=== PATIENT | female | born 1965 | race Two or more races ===

== ENCOUNTER 2022-08-14 10:12 | Emergency (ER) | payer BC, OTHER ==
[2022-08-14 10:30] VITALS: TEMP 98.4; BMI 27.1
[2022-08-14 12:00] LABS: INR 1.11 (0.83-1.09); PROTHROMBIN TIME (PATIENT) 12.8 SEC (9.7-13.0)
[2022-08-14 12:02] LABS: ACTIVATED PTT 34.4 SECONDS (25.2-36.5)
[2022-08-14] MEDS ORDERED: SODIUM CHLORIDE 0.9% 1000 ML INFUS.BAG IV ONE (12:07)
[2022-08-14 12:13] LABS: CALCIUM 10.1 mg/dL (8.5-10.1)
[2022-08-14 12:14] LABS: ALBUMIN 3.8 g/dl (3.4-5.0); BLOOD UREA NITROGEN 13.5 mg/dL (7-18)
[2022-08-14 12:16] LABS: BASO % 0.5 % (0-2.0); HEMATOCRIT 36.8 % (32.4-45.2); HEMOGLOBIN 12.2 GM/dL (10.7-15.3); LYMPH % 22.6 % (8-40); MCH 28.6 pg (25.7-33.7); MCHC 33.2 g/dl (32.0-36.0); MEAN PLT VOLUME 7.4 fl (7.5-11.1); MONO % 5.2 % (3.8-10.2); NEUT % 69.7 % (42.8-82.8); PLATELET COUNT 392 10^3/uL (134-434); RBC 4.28 M/mm3 (3.60-5.2); RDW 13.9 % (11.6-15.6); WHITE BLOOD COUNT 7.6 K/mm3 (4.0-10.0)
[2022-08-14 12:17] LABS: CREATININE 0.8 mg/dL (0.55-1.3)
[2022-08-14 12:18] LABS: TOT PROT 7.8 g/dl (6.4-8.2)
[2022-08-14 12:19] LABS: BILIRUBIN,TOTAL 0.4 mg/dL (0.2-1)
[2022-08-14 13:26] VITALS: BP 151/73; PULSE 82; RESP 19
[2022-08-14] MEDS ORDERED: metroNIDAZOLE 500 MG TABLET PO ONE (16:24)
[2022-08-14] MEDS ORDERED: CIPROFLOXACIN 500 MG TABLET (RESTRICTED TO ID) PO ONE (16:24)
[2022-08-14] MEDS ORDERED: metroNIDAZOLE 250 MG TABLET ONE (16:53)
== END 2022-08-14 17:16 | disposition home or self-care (01) ==
LOC: JER 10:12
DX: K62.5 Hemorrhage of anus and rectum (principal)
CPT/HCPCS: 0241U-QW; 36415; 74177-TC; 80053; 83690; 85025; 85610; 85730; 86850; 86900; 86901; 99285-25; Q9967

== ENCOUNTER 2022-10-16 04:27 | Day surgery (SDC) | payer BC, OTHER ==
[2022-10-15 09:37] VITALS: BMI 28.1
[2022-10-16 08:34] VITALS: TEMP 97.1
[2022-10-16 08:54] VITALS: RESP 16
[2022-10-16 12:08] VITALS: BP 147/76; PULSE 70
== END 2022-10-16 09:00 | disposition home or self-care (01) ==
LOC: JASU-ENDO 04:27
PROVIDERS: ATTEND Internal Medicine Gastroenterology
PROC: 0DJD8ZZ Inspection of Lower Intestinal Tract, Via Natural or Artificial Opening Endoscopic (ICD-10-PCS; principal; 2022-10-16 08:00)
DX: K62.5 Hemorrhage of anus and rectum (principal)
CPT/HCPCS: 82962

== ENCOUNTER 2023-09-21 09:55 | Emergency (ER) | payer BC, OTHER ==
[2023-09-21] MEDS ORDERED: PIPERACILLIN/TAZOB 2.25 GM 2.25 GM/50 ML BAG IVPB ONE (10:02)
[2023-09-21 11:02] VITALS: BP 154/67; PULSE 83; RESP 20; TEMP 98.2; BMI 31.9
== END 2023-09-21 12:12 | disposition home or self-care (01) ==
LOC: JER 09:55 → JERFT 09:55
DX: R05.9 Cough, unspecified (principal); Z20.822 Contact with and (suspected) exposure to COVID-19
CPT/HCPCS: 0241U-QW; 99283-25

== ENCOUNTER 2023-11-07 13:40 | Emergency (ER) | payer BC, OTHER ==
[2023-11-07 13:58] VITALS: BMI 49.8
[2023-11-07 14:44] LABS: EOS % 4.1 % (0-4.5); HEMATOCRIT 37.6 % (32.4-45.2); LYMPH % 23.7 % (8-40); MCH 27.2 pg (25.7-33.7); MCHC 31.9 g/dl (32.0-36.0); MEAN CELL VOLUME 85.4 fl (80-96); MEAN PLT VOLUME 7.4 fl (7.5-11.1); MONO % 5.5 % (3.8-10.2); NEUT % 65.7 % (42.8-82.8); PLATELET COUNT 431 10^3/uL (134-434); RDW 14.4 % (11.6-15.6); WHITE BLOOD COUNT 6.9 K/mm3 (4.0-10.0)
[2023-11-07 14:52] LABS: INR 0.96 (0.83-1.09); PROTHROMBIN TIME (PATIENT) 11.1 SEC (9.7-13.0)
[2023-11-07 14:54] LABS: ACTIVATED PTT 33.3 SECONDS (25.2-36.5)
[2023-11-07 15:06] LABS: POTASSIUM 4.7 mmol/L (3.5-5.1)
[2023-11-07 15:08] LABS: ALBUMIN 3.1 g/dl (3.4-5.0); BLOOD UREA NITROGEN 14.8 mg/dL (7-18); CALCIUM 9.9 mg/dL (8.5-10.1)
[2023-11-07 15:11] LABS: CREATININE 0.7 mg/dL (0.55-1.3)
[2023-11-07 15:13] LABS: BILIRUBIN,TOTAL 0.2 mg/dL (0.2-1); TOT PROT 7.5 g/dl (6.4-8.2)
[2023-11-07 15:57] VITALS: BP 133/64; PULSE 72; RESP 20; TEMP 98.2
== END 2023-11-07 20:17 | disposition home or self-care (01) ==
LOC: JER 13:40
DX: R07.89 Other chest pain (principal)
CPT/HCPCS: 36415; 71046-TC-FY; 80053; 84484; 85025; 85610; 85730; 93005; 93010; 99285-25

== ENCOUNTER 2023-12-14 21:32 | Observation (INO) | payer BC, OTHER ==
[2023-12-14] MEDS: SODIUM CHLORIDE 1,000 ML IV SCH (22:36)
[2023-12-14 22:38] LABS: BASO % 0.5 % (0-2.0); EOS % 1.6 % (0-4.5); HEMATOCRIT 36.6 % (32.4-45.2); LYMPH % 15.3 % (8-40); MCH 27.7 pg (25.7-33.7); MCHC 32.7 g/dl (32.0-36.0); MEAN CELL VOLUME 84.5 fl (80-96); MEAN PLT VOLUME 7.8 fl (7.5-11.1); MONO % 4.3 % (3.8-10.2); NEUT % 78.3 % (42.8-82.8); PLATELET COUNT 381 10^3/uL (134-434); RBC 4.33 M/mm3 (3.60-5.2); RDW 14.5 % (11.6-15.6); WHITE BLOOD COUNT 9.4 K/mm3 (4.0-10.0)
[2023-12-14 22:39] LABS: EPI CELLS >36 /uL (0-25.1); HYALINE CASTS 1 /uL (0-3.1); URINE APPEARANCE CLEAR; URINE BACTERIA 308 /uL (0-1359); URINE BILIRUBIN NEGATIVE (NEGATIVE); URINE COLOR YELLOW; URINE GLUCOSE (UA) 3+ (NEGATIVE); URINE KETONE TRACE (NEGATIVE); URINE LEUK ESTERASE NEGATIVE (NEGATIVE); URINE NITRITE NEGATIVE (NEGATIVE); URINE PROTEIN 2+ (NEGATIVE); URINE RBC 25 /uL (0-23.9); URINE UROBILINOGEN 0.2 mg/dL (0.2-1.0); URINE WBC 25 /uL (0-25.8)
[2023-12-14 22:42] LABS: VENOUS BASE EXCESS -1.9 mmol/L (-2-2); VENOUS O2 SATURATION 68.9 % (70-80); VENOUS PCO2 49.4 mmHg (38-52); VENOUS PH 7.322 (7.310-7.410)
[2023-12-14 22:46] LABS: INR 1.03 (0.83-1.09); PROTHROMBIN TIME (PATIENT) 11.9 SEC (9.7-13.0)
[2023-12-14 22:48] LABS: ACTIVATED PTT 30.3 SECONDS (25.2-36.5)
[2023-12-14 22:52] LABS: POTASSIUM 3.4 mmol/L (3.5-5.1)
[2023-12-14 22:53] LABS: CALCIUM 8.7 mg/dL (8.5-10.1)
[2023-12-14 22:55] LABS: BLOOD UREA NITROGEN 14.6 mg/dL (7-18)
[2023-12-14 22:57] LABS: CREATININE 0.8 mg/dL (0.55-1.3)
[2023-12-14 23:00] LABS: BILIRUBIN,TOTAL 0.3 mg/dL (0.2-1)
[2023-12-15] MEDS: SODIUM CHLORIDE 1,000 ML IV SCH (05:13)
[2023-12-15] MEDS: levETIRAcetam 500 MG/5 ML INJECTION VIAL IVPB ONE (05:13)
[2023-12-15] MEDS: INSULIN REGULAR HUMAN 100 UNITS/ML *VIAL IVPUSH ONE (05:14)
[2023-12-15 06:51] LABS: BASO % 0.3 % (0-2.0); EOS % 0.5 % (0-4.5); HEMATOCRIT 33.9 % (32.4-45.2); HEMOGLOBIN 11.5 GM/dL (10.7-15.3); LYMPH % 15.9 % (8-40); MCH 28.5 pg (25.7-33.7); MCHC 33.8 g/dl (32.0-36.0); MEAN CELL VOLUME 84.1 fl (80-96); MEAN PLT VOLUME 7.9 fl (7.5-11.1); MONO % 6.2 % (3.8-10.2); NEUT % 77.1 % (42.8-82.8); PLATELET COUNT 367 10^3/uL (134-434); RBC 4.03 M/mm3 (3.60-5.2); RDW 14.6 % (11.6-15.6); WHITE BLOOD COUNT 7.9 K/mm3 (4.0-10.0)
[2023-12-15 07:07] LABS: ALBUMIN 2.7 g/dl (3.4-5.0); BLOOD UREA NITROGEN 16.3 mg/dL (7-18); CALCIUM 8.9 mg/dL (8.5-10.1); MAGNESIUM 2.3 mg/dL (1.8-2.4)
[2023-12-15 07:10] LABS: CREATININE 0.9 mg/dL (0.55-1.3)
[2023-12-15 07:11] LABS: TOT PROT 6.6 g/dl (6.4-8.2)
[2023-12-15 07:12] LABS: BILIRUBIN,TOTAL 0.3 mg/dL (0.2-1)
[2023-12-15 07:51] LABS: METHADONE, UR NEGATIVE (NEGATIVE); PHENCYCLIDINE,URINE NEGATIVE (NEGATIVE); URINE BENZODIAZEPINES NEGATIVE (NEGATIVE)
[2023-12-15 07:52] LABS: COCAINE, UR NEGATIVE (NEGATIVE); OPIATES, URI NEGATIVE (NEGATIVE); URINE AMPHETAMINES NEGATIVE (NEGATIVE); URINE BARBITURATES NEGATIVE (NEGATIVE)
[2023-12-15] MEDS ORDERED: INSULIN (NOVOLOG) ASPART 100 UNITS/ML 10ML VIAL ONE ×4 (07:53→22:25)
[2023-12-15] MEDS: INSULIN ASPART SLIDING SCALE (NOVOLOG) 1 VIAL SQ SCH (08:00)
[2023-12-15] MEDS ORDERED: INSULIN (LEVEMIR) 100 UNITS/ML UNITS SQ ONE ×3 (10:00→22:28)
[2023-12-15] MEDS ORDERED: levETIRAcetam 500 MG/5 ML INJECTION VIAL IVPB ONE ×2 (10:00→22:30)
[2023-12-15] MEDS: levETIRAcetam 500 MG/5 ML INJECTION VIAL IVPB SCH (10:07)
[2023-12-15] MEDS: INSULIN (LEVEMIR) 100 UNITS/ML UNITS SQ SCH ×2 (10:07→22:39)
[2023-12-15] MEDS ORDERED: ENOXAPARIN NA (PORCINE) 40 MG/0.4 ML DISP.SYRIN SQ ONE (10:08)
[2023-12-15] MEDS: ENOXAPARIN NA (PORCINE) 40 MG/0.4 ML DISP.SYRIN SQ SCH (10:21)
[2023-12-15] MEDS ORDERED: levETIRAcetam 500 MG TABLET (FP) PO ONE (22:24)
[2023-12-16 01:40] VITALS: RESP 18; BMI 33.3
[2023-12-16 07:09] LABS: BASO % 0.4 % (0-2.0); EOS % 4.2 % (0-4.5); HEMATOCRIT 34.5 % (32.4-45.2); HEMOGLOBIN 11.3 GM/dL (10.7-15.3); LYMPH % 32.2 % (8-40); MCHC 32.8 g/dl (32.0-36.0); MEAN CELL VOLUME 85.2 fl (80-96); MEAN PLT VOLUME 7.9 fl (7.5-11.1); MONO % 5.9 % (3.8-10.2); NEUT % 57.3 % (42.8-82.8); PLATELET COUNT 333 10^3/uL (134-434); RBC 4.05 M/mm3 (3.60-5.2); RDW 14.7 % (11.6-15.6); WHITE BLOOD COUNT 5.9 K/mm3 (4.0-10.0)
[2023-12-16 07:21] LABS: POTASSIUM 3.7 mmol/L (3.5-5.1)
[2023-12-16 07:29] LABS: ALBUMIN 2.6 g/dl (3.4-5.0)
[2023-12-16 07:30] LABS: BLOOD UREA NITROGEN 14.4 mg/dL (7-18)
[2023-12-16 07:32] LABS: CREATININE 0.7 mg/dL (0.55-1.3)
[2023-12-16 07:33] LABS: BILIRUBIN,TOTAL 0.3 mg/dL (0.2-1)
[2023-12-16 07:34] LABS: TOT PROT 6.2 g/dl (6.4-8.2)
[2023-12-16] MEDS: INSULIN (LEVEMIR) 100 UNITS/ML UNITS SQ SCH (09:21)
[2023-12-16] MEDS ORDERED: INSULIN (NOVOLOG) ASPART 100 UNITS/ML 10ML VIAL ONE (11:58)
[2023-12-16] MEDS: ASPIRIN COATED 81 MG TABLET.EC PO SCH (14:26)
[2023-12-16 15:18] VITALS: BP 118/80; PULSE 74; TEMP 98.1
[2023-12-16] MEDS ORDERED: ATORVASTATIN CA 40 MG TABLET (FP) PO SCH (22:00)
== END 2023-12-16 16:06 | disposition home health service (06) ==
LOC: JER 21:32 → UNDOADMOB 12-15 01:49 → JERBED 12-15 01:49 → INTOOBSV 12-15 04:39 → OBSVTOIN 12-15 04:39 → J4W 12-15 23:36 → JERBED 12-15 23:36 → J4W 12-16 09:18
PROVIDERS: ADMIT Internal Medicine; ATTEND Internal Medicine
PROC: 3E023GC Introduction of Other Therapeutic Substance into Muscle, Percutaneous Approach (ICD-10-PCS; principal; 2023-12-16)
PROC: 3E013VG Introduction of Insulin into Subcutaneous Tissue, Percutaneous Approach (ICD-10-PCS; 2023-12-16)
PROC: 3E013VG Introduction of Insulin into Subcutaneous Tissue, Percutaneous Approach (ICD-10-PCS; 2023-12-16)
PROC: 3E033GC Introduction of Other Therapeutic Substance into Peripheral Vein, Percutaneous Approach (ICD-10-PCS; 2023-12-16)
PROC: 3E0337Z Introduction of Electrolytic and Water Balance Substance into Peripheral Vein, Percutaneous Approach (ICD-10-PCS; 2023-12-16)
DX: R56.9 Unspecified convulsions (principal); R41.82 Altered mental status, unspecified; G93.41 Metabolic encephalopathy; E11.65 Type 2 diabetes mellitus with hyperglycemia; Z90.49 Acquired absence of other specified parts of digestive tract; Z85.89 Personal history of malignant neoplasm of other organs and systems; Z29.89 Encounter for other specified prophylactic measures; Z88.8 Allergy status to other drugs, medicaments and biological substances; Z91.013 Allergy to seafood; Z88.0 Allergy status to penicillin; Z88.5 Allergy status to narcotic agent
CPT/HCPCS: 36415; 70450-TC; 70496-TC; 70498-TC; 70552-TC; 71045-TC-FY; 80053; 80061; 80307; 81003; 82010; 82550; 82803; 82962; 83036; 83735; 84100; 84484; 85025; 85610; 85730; 86850; 86900; 86901; 93005; 93010; 96361; 96365; 96375; 96376; 99285-25; G0378; Q9967